=== PATIENT | female | born 1960 | race Caucasian/White ===

== ENCOUNTER 2023-11-13 03:09 | Emergency (ER) | payer MEDICARE, OTHER ==
[2023-11-13 03:26] VITALS: BMI 30.9
[2023-11-13] MEDS ORDERED: LACTULOSE 20 GM/30 ML UDC (FOR ORAL USE ONLY) PO ONE (04:21)
[2023-11-13] MEDS ORDERED: LACTULOSE 20 GM/30 ML UDC (FOR ORAL USE ONLY) ONE (04:31)
[2023-11-13 04:51] LABS: BASO % 0.3 % (0-2.0); HEMATOCRIT 37.7 % (32.4-45.2); HEMOGLOBIN 12.7 GM/dL (10.7-15.3); LYMPH % 18.2 % (8-40); MCH 27.5 pg (25.7-33.7); MCHC 33.6 g/dl (32.0-36.0); MEAN CELL VOLUME 81.9 fl (80-96); NEUT % 76.5 % (42.8-82.8); PLATELET COUNT 286 10^3/uL (134-434); RDW 18.8 % (11.6-15.6); WHITE BLOOD COUNT 10.2 K/mm3 (4.0-10.0)
[2023-11-13 05:13] LABS: CHLORIDE 97 mmol/L (98-107); POTASSIUM 3.4 mmol/L (3.5-5.1); SODIUM 136 mmol/L (136-145)
[2023-11-13 05:15] LABS: CALCIUM 9.2 mg/dL (8.5-10.1); GLUCOSE,RANDOM 132 mg/dL (74-106)
[2023-11-13 05:16] LABS: ANION GAP 10 mmol/L (4-13); BLOOD UREA NITROGEN 6.3 mg/dL (7-18); CO2 30 mmol/L (21-32)
[2023-11-13] MEDS ORDERED: POTASSIUM CHLORIDE ORAL LIQUID 20 MEQ/15 ML PO ONE (05:17)
[2023-11-13] MEDS ORDERED: MAGNESIUM SULF 50% (8.12 MEQ/2 ML-1 GM VIAL) IVPB ONE (05:17)
[2023-11-13 05:18] LABS: SGPT/ALT < 6 U/L (13-61)
[2023-11-13 05:19] LABS: CREATININE 0.6 mg/dL (0.55-1.3); SGOT/AST 17 U/L (15-37)
[2023-11-13 05:20] LABS: BILIRUBIN,TOTAL 0.6 mg/dL (0.2-1); TOT PROT 7.3 g/dl (6.4-8.2)
[2023-11-13 05:21] LABS: ALK PHOS 76 U/L (45-117)
[2023-11-13] MEDS ORDERED: MAGNESIUM SULFATE IN WATER 2 GM/50 ML IVPB IVPB ONE (06:17)
[2023-11-13] MEDS ORDERED: POTASSIUM CHLORIDE ORAL LIQUID 20 MEQ/15 ML ONE (06:17)
[2023-11-13] MEDS ORDERED: ONDANSETRON 4 MG/2 ML VIAL IVPUSH ONE (08:08)
[2023-11-13] MEDS ORDERED: ONDANSETRON 4 MG/2 ML VIAL ONE (09:01)
[2023-11-13 09:33] LABS: URINE APPEARANCE CLEAR; URINE BILIRUBIN NEGATIVE (NEGATIVE); URINE COLOR YELLOW; URINE GLUCOSE (UA) NEGATIVE (NEGATIVE); URINE KETONE TRACE (NEGATIVE); URINE LEUK ESTERASE NEGATIVE (NEGATIVE); URINE NITRITE NEGATIVE (NEGATIVE); URINE PROTEIN NEGATIVE (NEGATIVE); URINE UROBILINOGEN 0.2 mg/dL (0.2-1.0)
[2023-11-13 09:34] LABS: LIPASE 74 U/L (73-393)
[2023-11-13] MEDS ORDERED: CARBIDOPA/LEVODOPA 25/100 TABLET (FP) PO ONE (15:03)
[2023-11-13] MEDS ORDERED: DIVALPROEX SODIUM 500 MG TABLET E.C. PO ONE (15:03)
[2023-11-13] MEDS ORDERED: cloZAPine 25 MG TABLET PO ONE (15:05)
[2023-11-13] MEDS ORDERED: cloZAPine 100 MG TABLET PO ONE (15:30)
[2023-11-13] MEDS ORDERED: DIVALPROEX SODIUM 250 MG TABLET E.C. ONE (15:37)
[2023-11-13] MEDS ORDERED: CARBIDOPA/LEVODOPA 25/100 TABLET (FP) ONE (15:37)
[2023-11-13 18:48] VITALS: RESP 18; TEMP 98.2
[2023-11-13 22:00] VITALS: BP 128/74; PULSE 72
== END 2023-11-13 22:25 | disposition home or self-care (01) ==
LOC: JER 03:09
PROC: 3E033GC Introduction of Other Therapeutic Substance into Peripheral Vein, Percutaneous Approach (ICD-10-PCS; principal; 2023-11-13)
PROC: 3E033GC Introduction of Other Therapeutic Substance into Peripheral Vein, Percutaneous Approach (ICD-10-PCS; 2023-11-13)
DX: R11.2 Nausea with vomiting, unspecified (principal); R10.13 Epigastric pain; Z20.822 Contact with and (suspected) exposure to COVID-19
CPT/HCPCS: 0241U-QW; 36415; 74177-TC; 80053; 81003; 83690; 84484; 85025; 87086; 93005; 93010; 99285-25; Q9967